=== PATIENT | male | born 1960 | race Caucasian/White ===

== ENCOUNTER 2022-05-14 10:41 | Observation (INO) ==
[2022-05-14] MEDS ORDERED: ONDANSETRON ODT 4 MG TABLET PO STA (11:09)
[2022-05-14] MEDS ORDERED: methylPREDNISolone SOD SUC 125 MG/2 ML VIAL IV STA (11:09)
[2022-05-14 11:26] LABS: Basophils % 0.5 % (0.0-0.8); Eosinophils # 0.2 10*3/uL (0.0-0.87); Eosinophils % 3.1 % (0.00-10.9); Hematocrit 42.3 VOL% (42.0-52.0); Hemoglobin 13.2 GM/DL (14.0-18.0); Immature Granulocytes % 0.6 %; Immature Granulocytes Absolute 0.04 #; Lymphocytes # 1.2 10*3/uL (1.4-4.0); Lymphocytes % 18.1 % (21.2-54.2); Mean Corpuscular HGB Conc 31.2 GM/DL (32-36); Mean Corpuscular Volume 96.1 FL (87-102); Mean Platelet Volume 10.2 FL (9.6-12.0); Monocytes # 0.3 10*3/uL (0.11-0.8); Monocytes % 4.5 % (1.7-12.7); Neutrophils % 73.2 % (38.7-73.9); Platelet Count 207 T/CUMM (130-400); Red Cell Distribution Width 13.2 % (9.3-17.3); White Blood Count 6.4 T/CUMM (4-12)
[2022-05-14] MEDS ORDERED: ALBUTEROL NEB SOLN 5 MG/ML 20 ML/BOTTLE CONT NEB SCH (11:30)
[2022-05-14 11:36] LABS: Arterial Base Excess iSTAT 1 MMOL/L (-2.5-2.5); Arterial Bicarbonate iSTAT 26.5 MMOL/L (20-26); Arterial O2 Saturation iSTAT 97 % (95-100); Arterial PCO2 iSTAT 46 MM HG (35-48); Arterial PO2 iSTAT 92 MM HG (80-95); Arterial Total CO2 iSTAT 28 MMO/L (23-27); Arterial pH iSTAT 7.369 (7.35-7.45)
[2022-05-14 11:43] LABS: INR 1.1; PT Patient Result 11.8 SECS (10.1-12.1); Partial Thromboplastin Time 30.8 SECS (23.7-32.9)
[2022-05-14 11:44] LABS: Alanine Aminotransferase 23 U/L (16-61); Albumin 2.9 G/DL (3.4-5.0); Alkaline Phosphatase 60 U/L (45-117); Aspartate Amino Transferase 20 U/L (0-37); Bilirubin,Total < 0.39 MG/DL (0.20-1.00); Blood Urea Nitrogen 11 MG/DL (7-18); Calcium 8.3 MG/DL (8.5-10.1); Carbon Dioxide 30 MMOL/L (21-32); Chloride 106 MMOL/L (98-107); Glucose 142 MG/DL (74-106); Osmolality,Calculated 281.3 MOS/KG (273-304); Potassium 3.7 MMOL/L (3.5-5.1); Sodium 141 MMOL/L (136-145); Total Protein 7.4 G/DL (6.4-8.2)
[2022-05-14] MEDS ORDERED: DEXAMETHASONE 4 MG/1 ML VIAL IM STA (12:53)
[2022-05-14] MEDS ORDERED: AZITHROMYCIN INJ 500 MG in SODIUM CHLORIDE 0.9% 250 ML IV ONE (13:55)
[2022-05-14] MEDS ORDERED: MELATONIN 3 MG TABLET PO PRN (13:55)
[2022-05-14] MEDS ORDERED: ACETAMINOPHEN 325 MG TABLET PO PRN (13:56)
[2022-05-14] MEDS ORDERED: hydrALAZINE 20 MG/1 ML VIAL IV PRN (13:56)
[2022-05-14] MEDS ORDERED: GLUCAGON 1 MG VIAL IM PRN (13:56)
[2022-05-14] MEDS ORDERED: DOCUSATE SODIUM 100 MG CAPSULE PO PRN (13:56)
[2022-05-14] MEDS ORDERED: ONDANSETRON 4 MG/2 ML VIAL IV PRN (13:56)
[2022-05-14] MEDS ORDERED: DEXTROSE 10% 250 ML BAG IV PRN (14:01)
[2022-05-14 14:23] LABS: Risk Ratio 3.78; Thyroid Stimulating Hormone 0.798 uIU/ml (0.358-3.74); VLDL Cholesterol 11.8 MG/DL
[2022-05-14] MEDS: ENOXAPARIN 40 MG/0.4 ML SYRINGE SUBCUT SCH (15:51)
[2022-05-14] MEDS: ZINC GLUCONATE 50 MG TABLET PO SCH (15:52)
[2022-05-14] MEDS: CETIRIZINE 10 MG TABLET PO SCH (15:52)
[2022-05-14] MEDS: CHOLECALCIFEROL 1,000 UNIT TABLET PO SCH (16:51)
[2022-05-14] MEDS: INSULIN LISPRO 100 UNIT/ML SUBCUT SCH ×2 (17:46→21:12)
[2022-05-14 18:05] LABS: Urine Appearance Clear (Clear); Urine Color Yellow (Yellow); Urine pH 5.5 (4.5-8.0)
[2022-05-14 18:06] LABS: Bilirubin,Urine Negative (Negative); Blood, Urine Negative (Negative); Glucose,Urine (UA) 100 mg/dL (Negative); Ketones,Urine Negative (Negative); Nitrite,Urine Negative (Negative); Protein,Urine 30 mg/dL (Negative); Urine Specific Gravity > 1.030 (1.001-1.035)
[2022-05-14 18:07] LABS: Bacteria,Urine Occasional /HPF (Few); Hyaline Casts,Urine 1 /LPF (0-3); Mucus,Urine Occasional /LPF (Occasional); RBC,Urine 1 /HPF (0-4); Squamous Epithelial Cell,Urine Occasional /HPF (0-10)
[2022-05-14 18:55] LABS: Barbiturates Screen,Urine Negative (Negative); Benzodiazepines Screen,Urine Negative (Negative); Cannabinoid Screen,Urine Negative (Negative); Opiate Screen,Urine Negative (Negative); Phencyclidine Screen,Urine Negative (Negative)
[2022-05-14] MEDS ORDERED: ALBUTEROL 2.5 MG/3 ML NEB RESP TX PRN (19:00)
[2022-05-14] MEDS: ALBUTEROL/IPRATROPIUM 3 ML NEB RESP TX SCH ×2 (19:10→19:20)
[2022-05-14] MEDS: TERAZOSIN 1 MG CAPSULE PO SCH (21:12)
[2022-05-14] MEDS: BUDESONIDE/FORMOTEROL 160-4.5 INHALER 6 GM INH SCH (21:12)
[2022-05-14] MEDS: rOPINIRole 4 MG TABLET PO SCH (21:13)
[2022-05-14] MEDS: FUROSEMIDE 80 MG TABLET PO SCH (21:13)
[2022-05-14] MEDS: ROSUVASTATIN 10 MG TABLET PO SCH (21:13)
[2022-05-14] MEDS: ASCORBIC ACID 500 MG TABLET PO SCH (21:13)
[2022-05-14] MEDS: FAMOTIDINE 20 MG TABLET PO SCH (21:14)
[2022-05-15] MEDS: ALBUTEROL/IPRATROPIUM 3 ML NEB RESP TX SCH ×4 (02:20→19:06)
[2022-05-15 05:33] LABS: Basophils % 0.3 % (0.0-0.8); Hematocrit 38.6 VOL% (42.0-52.0); Immature Granulocytes % 0.5 %; Immature Granulocytes Absolute 0.02 #; Lymphocytes # 0.4 10*3/uL (1.4-4.0); Lymphocytes % 10.7 % (21.2-54.2); Mean Corpuscular HGB Conc 31.1 GM/DL (32-36); Mean Corpuscular Volume 96.3 FL (87-102); Mean Platelet Volume 10.4 FL (9.6-12.0); Monocytes # 0.1 10*3/uL (0.11-0.8); Monocytes % 3.1 % (1.7-12.7); Neutrophils % 85.4 % (38.7-73.9); Platelet Count 226 T/CUMM (130-400); Red Blood Count 4.01 MC/CUMM (3.8-5.5); Red Cell Distribution Width 13.2 % (9.3-17.3); White Blood Count 3.9 T/CUMM (4-12)
[2022-05-15 05:58] LABS: Alanine Aminotransferase 35 U/L (16-61); Albumin 2.6 G/DL (3.4-5.0); Alkaline Phosphatase 58 U/L (45-117); Aspartate Amino Transferase 36 U/L (0-37); Bilirubin,Total < 0.39 MG/DL (0.20-1.00); Blood Urea Nitrogen 12 MG/DL (7-18); Calcium 8.3 MG/DL (8.5-10.1); Carbon Dioxide 29 MMOL/L (21-32); Chloride 105 MMOL/L (98-107); Glucose 204 MG/DL (74-106); Osmolality,Calculated 280.7 MOS/KG (273-304); Potassium 4.1 MMOL/L (3.5-5.1); Sodium 138 MMOL/L (136-145)
[2022-05-15] MEDS: BUDESONIDE/FORMOTEROL 160-4.5 INHALER 6 GM INH SCH ×2 (10:02→21:44)
[2022-05-15] MEDS: POTASSIUM CHLORIDE 20 MEQ TABLET PO SCH (10:03)
[2022-05-15] MEDS: CETIRIZINE 10 MG TABLET PO SCH (10:03)
[2022-05-15] MEDS: MONTELUKAST 10 MG TABLET PO SCH (10:03)
[2022-05-15] MEDS: ZINC GLUCONATE 50 MG TABLET PO SCH (10:03)
[2022-05-15] MEDS: FUROSEMIDE 80 MG TABLET PO SCH ×2 (10:03→21:43)
[2022-05-15] MEDS: AZITHROMYCIN 250 MG TABLET PO SCH (10:03)
[2022-05-15] MEDS: CHOLECALCIFEROL 1,000 UNIT TABLET PO SCH (10:04)
[2022-05-15] MEDS: DEXAMETHASONE 4 MG/1 ML VIAL IV SCH (10:04)
[2022-05-15] MEDS: FAMOTIDINE 20 MG TABLET PO SCH ×2 (10:04→21:43)
[2022-05-15] MEDS: ASCORBIC ACID 500 MG TABLET PO SCH ×2 (10:04→21:43)
[2022-05-15] MEDS: INSULIN LISPRO 100 UNIT/ML SUBCUT SCH ×4 (10:05→21:43)
[2022-05-15] MEDS: ENOXAPARIN 40 MG/0.4 ML SYRINGE SUBCUT SCH (15:15)
[2022-05-15] MEDS: rOPINIRole 4 MG TABLET PO SCH (21:43)
[2022-05-15] MEDS: TERAZOSIN 1 MG CAPSULE PO SCH (21:43)
[2022-05-15] MEDS: ROSUVASTATIN 10 MG TABLET PO SCH (21:43)
[2022-05-16] MEDS: ALBUTEROL/IPRATROPIUM 3 ML NEB RESP TX SCH ×3 (00:07→14:04)
[2022-05-16] MEDS: INSULIN LISPRO 100 UNIT/ML SUBCUT SCH ×2 (08:00→11:33)
[2022-05-16] MEDS: MONTELUKAST 10 MG TABLET PO SCH (08:53)
[2022-05-16] MEDS: CHOLECALCIFEROL 1,000 UNIT TABLET PO SCH (08:53)
[2022-05-16] MEDS: FUROSEMIDE 80 MG TABLET PO SCH (08:53)
[2022-05-16] MEDS: AZITHROMYCIN 250 MG TABLET PO SCH (08:53)
[2022-05-16] MEDS: DEXAMETHASONE 4 MG/1 ML VIAL IV SCH (08:53)
[2022-05-16] MEDS: ASCORBIC ACID 500 MG TABLET PO SCH (08:53)
[2022-05-16] MEDS: POTASSIUM CHLORIDE 20 MEQ TABLET PO SCH (08:53)
[2022-05-16] MEDS: ZINC GLUCONATE 50 MG TABLET PO SCH (08:53)
[2022-05-16] MEDS: CETIRIZINE 10 MG TABLET PO SCH (08:53)
[2022-05-16] MEDS: FAMOTIDINE 20 MG TABLET PO SCH (08:54)
[2022-05-16] MEDS: BUDESONIDE/FORMOTEROL 160-4.5 INHALER 6 GM INH SCH (09:00)
[2022-05-16 12:05] VITALS: BP 141/77
== END 2022-05-16 14:02 | disposition home health service (06) ==
LOC: N.EDINP 10:41 → N.ED 10:41 → SUATTDRO 12:56 → N.5E 16:47
PROVIDERS: ADMIT Internal Medicine; ATTEND Phlebology